=== PATIENT | female | born 1960 | race Caucasian/White ===

== ENCOUNTER 2020-03-23 15:31 | Emergency (ER) | payer MEDICAID ==
[~2020-03-23] VITALS: Ht 167.6 cm; Wt 49.9 kg
[~2020-03-23 15:31] MED LIST: HYDR-3974 PO
--- NOTE | 2020-03-23 15:31 | NUR ---
PT BIBRA FROM THE STREET C/O BIZARRE BEHAVIOR. PT IS AAOX2, NOT IN RESPIRATORY DISTRESS, V/S STABLE, KEPT RESTED AND COMFORTABLE. WILL CONTINUE TO MONITOR.
--- NOTE | 2020-03-23 15:43 | NUR ---
PT SEEN AND EXAMINED BY .
[2020-03-23] MEDS ORDERED: diphenhydrAMINE HCL 50 MG/ML VIAL ONE (15:49)
[2020-03-23] MEDS ORDERED: HALOPERIDOL LACTATE INJ 5 MG/ML VIAL ONE (15:49)
[2020-03-23] MEDS ORDERED: diphenhydrAMINE HCL 50 MG/ML VIAL IV ONE (16:00)
[2020-03-23] MEDS ORDERED: HALOPERIDOL LACTATE INJ 5 MG/ML VIAL IM ONE (16:00)
--- NOTE | 2020-03-23 16:00 | NUR ---
PT COMBATIVE AND AGITATED THROWING HER FECES EVERYWHERE ON THE FLOOR AND ON THE WALL. MD MADE AWARE. ORDERED HALDOL AND BENADRYL
[2020-03-23 16:51] LABS: BASOPHILS # (AUTO) 0.1 /CMM (0.0-0.2); BASOPHILS % (AUTO) 0.8 % (0.0-2.0); EOSINOPHILS % (AUTO) 0.2 % (0.0-6.0); HEMATOCRIT 34 % (33-45); HEMOGLOBIN 11.3 g/dL (11.5-14.8); LYMPHOCYTES # (AUTO) 0.9 /CMM (0.8-4.8); MEAN CORPUSCULAR HGB CONC 33 g/dl (31.0-36.0); MEAN CORPUSCULAR VOLUME 93 fL (82-100); MONOCYTES # (AUTO) 0.5 /CMM (0.1-1.30); MONOCYTES % (AUTO) 6.2 % (2.0-12.0); NEUTROPHILS # (AUTO) 6.9 /CMM (1.8-8.9); NEUTROPHILS % (AUTO) 81.8 % (43.0-81.0); PLATELET COUNT (AUTO) 368 /CMM (150-450); RED BLOOD CELL COUNT(AUTO) 3.65 MIL/uL (4.0-5.2); WHITE BLOOD COUNT (AUTO) 8.4 K/uL (4.3-11.0)
[2020-03-23 17:06] LABS: CALCIUM, SERUM 8.1 mg/dL (8.5-10.1); CARBON DIOXIDE 25 mmol/L (21-32); CHLORIDE 104 mmol/L (98-107); CREATININE 0.5 mg/dL (0.6-1.3); GLUCOSE 114 mg/dL (74-106); POTASSIUM 3.4 mmol/L (3.5-5.1); SODIUM SERUM 138 mmol/L (136-145); UREA NITROGEN, BLOOD 19 mg/dL (7-18)
[2020-03-23 17:38] LABS: ALANINE AMINOTRANSFERASE 30 U/L (12-78); ALBUMIN 3.2 g/dL (3.4-5.0); ALCOHOL, BLOOD < 3 mg/dL (0-0); ALKALINE PHOSPHATASE 104 U/L (46-116); ASPARTATE AMINOTRANSFERASE 28 U/L (15-37); BILIRUBIN,DIRECT 0.1 mg/dL (0.0-0.2); BILIRUBIN,TOTAL 0.3 mg/dL (0.2-1.0); TOTAL PROTEIN, SERUM 6.6 g/dL (6.4-8.2)
[2020-03-23 17:39] LABS: ACETAMINOPHEN < 2 ug/ml (10-30)
--- NOTE | 2020-03-23 18:00 | NUR ---
son felton lara # [phone], daughter blaine # [phone]
--- NOTE | 2020-03-23 19:43 | NUR ---
ASSUMED CARE FOR THIS PT. PT AAOX3, VSS, RESPIRATIONS EVEN AND UNLABORED ON RA W/ NAD NOTED. SITTER AT BEDSIDE FOR SAFETY. CALL LIGHT WITHIN REACH. WILL CONTINUE TO MONITOR PT
[2020-03-23] MEDS ORDERED: OLANZAPINE 10 MG VIAL IM ONE ×3 (20:00→20:08)
--- NOTE | 2020-03-23 20:13 | NUR ---
PT FOUND MASTERBATING IN BED. SPEAKING TO STAFF INAPPROPRIATELY. VITAL SIGNS STABLE, SITTER STILL AT BEDSIDE. WILL CONTINUE TO MONITOR
--- NOTE | 2020-03-23 20:51 | NUR ---
COVID SWAB SENT TO LAB
--- NOTE | 2020-03-23 21:09 | NUR ---
URINE COLLECTED AND SENT TO LAB
[2020-03-23 21:47] LABS: APPEARANCE,URINE CLEAR (CLEAR); BILIRUBIN,URINE NEGATIVE (NEGATIVE); BLOOD, URINE TRACE-INTA Ery/uL (NEGATIVE); COLOR,URINE YELLOW (YELLOW); LEUKOCYTE ESTERASE ,URINE NEGATIVE (NEGATIVE); NITRITE, URINE NEGATIVE (NEGATIVE); PH,URINE 6.5 (5.0-8.0); PROTEIN,URINE NEGATIVE (NEGATIVE); UGLUCOSE NEGATIVE (NEGATIVE); UROBILINOGEN,URINE 0.2 EU/dL (0.2)
[2020-03-23 21:53] LABS: BACTERIA,URINE RARE /HPF (None Seen); MUCUS,URINE Few /LPF (None Seen); SQUAMOUS EPITHELIAL CELL,UR 0-2 /HPF (None Seen); WBC,URINE 0-2 /HPF (0-3)
--- NOTE | 2020-03-24 01:14 | NUR ---
Patient is resting comfortably in bed with eyes closed. Easily aroused. VSS
--- NOTE | 2020-03-24 03:03 | NUR ---
PT RESTING COMFORTABLY IN BED. VSS. NO ACUTE DISTRESS NOTED. SITTER AT BEDSIDE FOR SAFETY
--- NOTE | 2020-03-24 05:45 | NUR ---
PT STATES " DON'T COME NEAR ME OR I AM GOING TO HIT YOU".
--- NOTE | 2020-03-24 06:26 | NUR ---
Note mary in EDM - 03/24/20 at 0626 by SHUBHAM Patient given written and verbal discharge instructions. Patient verbalizes understanding of instructions. Patient is ambulatory with steady gait. Refuses offer of [facility] placement. Patient given list of available shelters in surrounding area.
[2020-03-24 06:32] VITALS: BP 145/88
--- NOTE | 2020-03-24 06:32 | NUR ---
Pt refused to sign aci
--- NOTE | 2020-03-24 06:32 | NUR ---
Patient given written and verbal discharge instructions. Patient verbalizes understanding of instructions. Patient is ambulatory with steady gait. Refuses offer of [facility] placement. Patient given list of available shelters in surrounding area.
== END 2020-03-24 06:33 | disposition home or self-care (01) ==
LOC: ER 16:38
DX: F29 Unspecified psychosis not due to a substance or known physiological condition (principal); Z59.0 Homelessness; Z20.828 Contact with and (suspected) exposure to other viral communicable diseases; R94.31 Abnormal electrocardiogram [ECG] [EKG]; F17.200 Nicotine dependence, unspecified, uncomplicated; M79.7 Fibromyalgia; G89.29 Other chronic pain; B27.00 Gammaherpesviral mononucleosis without complication
CPT/HCPCS: 36415; 71045; 80048; 80076; 80299; 80307; 80320; 81001; 84484; 85025; 87426; 93005; 96372 ×2; 99285; C9803; J1200; J1630; J3490; 81000-TC; G0480